=== PATIENT | male | born 1980 | race Caucasian/White ===

== ENCOUNTER 2016-11-01 09:13 | Emergency (ER) | payer MEDICAID, OTHER ==
[~2016-11-01] VITALS: Ht 182.9 cm; Wt 121.9 kg
[2016-11-01] MEDS ORDERED: SODIUM CHLORIDE 0.9% 1,000 ML IV ONE (10:50)
[2016-11-01] MEDS ORDERED: FAMOTIDINE 20 MG/2 ML IVP ONE (11:00)
[2016-11-01] MEDS ORDERED: ONDANSETRON 2MG/ML, 2ML IVPush ONE (11:00)
[2016-11-01] MEDS ORDERED: ONDANSETRON 2MG/ML, 2ML ONE (11:01)
[2016-11-01] MEDS ORDERED: MORPHINE SULFATE 4 MG/ML, 1ML ONE ×2 (11:01→12:46)
[2016-11-01] MEDS ORDERED: FAMOTIDINE 20 MG/2 ML ONE (11:02)
[2016-11-01 11:08] LABS: HEMOGLOBIN 16.1 g/dL (13.7-18.0)
[2016-11-01] MEDS: MORPHINE SULFATE 4 MG/ML, 1ML IVPush PRN ×2 (11:11→12:51)
[2016-11-01 11:19] LABS: BLOOD UREA NITROGEN 9 mg/dL (7-18)
[2016-11-01 11:31] LABS: ASPARTATE AMINO TRANSFERASE 13 U/L (15-37)
[2016-11-01] MEDS ORDERED: OMNIPAQUE 350 MG/ML, 100ML BOTTLE ONE (12:23)
[2016-11-01 12:53] LABS: PATH.CAST-FLAG NOT PRESENT; SPERM-FLAG NOT PRESENT; SRC-FLAG NOT PRESENT; XTAL-FLAG NOT PRESENT; YLC-FLAG NOT PRESENT
[2016-11-01 13:38] VITALS: BP 148/77
== END 2016-11-01 13:40 | disposition home or self-care (01) ==
LOC: ED 10:44
DX: K52.9 Noninfective gastroenteritis and colitis, unspecified (principal); D72.829 Elevated white blood cell count, unspecified; R10.84 Generalized abdominal pain; Z88.0 Allergy status to penicillin
CPT/HCPCS: 36415; 74177; 80053; 81001; 83690; 85025; 85610; 96361; 96374; 96375; 96376; 99285; J2405; J7030; Q9967; S0028

== ENCOUNTER 2017-01-15 18:05 | Emergency (ER) | payer MEDICAID ==
[~2017-01-15] VITALS: Ht 182.9 cm; Wt 111.5 kg
[2017-01-15 18:59] LABS: DAU SCREEN DISCLAIMER
[2017-01-15 19:13] LABS: BLOOD UREA NITROGEN 15 mg/dL (7-18)
[2017-01-15 19:16] LABS: ACETAMINOPHEN < 2 mcg/mL (10-30)
[2017-01-15 21:47] VITALS: BP 137/92
== END 2017-01-15 21:49 | disposition home or self-care (01) ==
LOC: ED 18:37
DX: F32.2 Major depressive disorder, single episode, severe without psychotic features (principal)
CPT/HCPCS: 36415; 80048; 80307; 80329; 82040; 85025; 99284; G0480

== ENCOUNTER 2017-12-29 17:11 | Emergency (ER) | payer BC, MEDICAID ==
[~2017-12-29] VITALS: Ht 182.9 cm; Wt 132.0 kg
[2017-12-29 17:13] VITALS: BP 134/91
[2017-12-29] MEDS ORDERED: HYDROcodone/APAP 5/325 TABLET ONE (17:48)
[2017-12-29] MEDS ORDERED: HYDROcodone/APAP 5/325 TABLET PO ONE (18:00)
== END 2017-12-29 18:30 | disposition home or self-care (01) ==
LOC: ED 18:25
DX: K04.7 Periapical abscess without sinus (principal)
CPT/HCPCS: 41800; 99283

== ENCOUNTER 2018-09-30 09:36 | Emergency (ER) | payer BC ==
[~2018-09-30] VITALS: Ht 182.9 cm; Wt 139.0 kg
--- NOTE | 2018-09-30 10:03 | NUR ---
Pt reports right testicle pain that started yesterday. Pt is alert, oriented, with NAD. Pt is connected to the monitor. Call light within reach.
[2018-09-30 10:40] LABS: BASOPHILS % (AUTO) 1 % (0-1); EOSINOPHILS % (AUTO) 6 % (1-7); LYMPHOCYTES # (AUTO) 2.83 x10^3/uL (1-3.4); LYMPHOCYTES % (AUTO) 27 % (22-44); MD NO; MEAN CORPUSCULAR HEMOGLOBIN 30.7 pg (27.5-34.5); MEAN CORPUSCULAR HGB CONC 34.7 g/dL (33.2-36.2); MEAN CORPUSCULAR VOLUME 88.4 fL (81-97); MEAN PLATELET VOLUME 7.8 fL (7.4-10.4); MONOCYTES # (AUTO) 0.74 x10^3/uL (0.2-0.8); MONOCYTES % (AUTO) 7 % (2-9); NEUTROPHILS # (AUTO) 6.23 x10^3/uL (1.8-6.8); NEUTROPHILS % (AUTO) 59 % (42-75); PLATELET COUNT 262 x10^3/uL (130-400); RED BLOOD COUNT 5.22 x10^6/uL (4.38-5.82); RED CELL DISTRIBUTION WIDTH 13.6 % (9.4-14.8)
[2018-09-30 10:50] LABS: ALBUMIN 3.5 g/dL (3.4-5.0); ANION GAP 6 mmol/L (5-15); CALCIUM 8.5 mg/dL (8.5-10.1); CHLORIDE 107 mmol/L (98-107)
[2018-09-30 10:51] LABS: CREATININE 0.78 mg/dL (0.7-1.3)
--- NOTE | 2018-09-30 10:57 | NUR ---
PT IS OFF THE FLOOR TO US.
--- NOTE | 2018-09-30 11:24 | NUR ---
PT IS BACK FROM US. PT PROVIDED A URINE SAMPLE. SAMPLE SENT TO LAB. PT IS ALERT, ORIENTED, WITH NAD. PT IS CONNECTED TO THE MONITOR. CALL LIGHT WITHIN REACH.
[2018-09-30 11:39] LABS: MICROSCOPIC NOT IND
[2018-09-30 12:16] LABS: CULTURE INDICATED? NO
[2018-09-30 12:31] VITALS: BP 125/81
--- NOTE | 2018-09-30 12:32 | NUR ---
PT IS RESTING IN BED RESPIRATIONS EQUAL AND NON LABORED. NAD. PT IS CONNECTED TO THE MONITOR. CALL LIGHT WITHIN REACH.
[2018-09-30] MEDS ORDERED: HYDROcodone/APAP 5/325 TABLET ONE (12:37)
[2018-09-30] MEDS ORDERED: HYDROcodone/APAP 5/325 TABLET PO ONE (13:00)
--- NOTE | 2018-09-30 13:12 | NUR ---
TASK RN: FIRST CONTACT WITH PT. Patient given discharge instructions and they have confirmed that they understand the instructions. Patient ambulatory with steady gait. Pt left with all personal belongings, discharge paperwork, and perscription.
== END 2018-09-30 13:14 | disposition home or self-care (01) ==
LOC: ED 10:17
DX: N50.812 Left testicular pain (principal); N50.811 Right testicular pain
CPT/HCPCS: 36415; 76870; 80048; 81003; 82040; 85025; 99284

== ENCOUNTER 2018-10-19 16:35 | Inpatient (IN) | payer BC ==
[~2018-10-19] VITALS: Ht 182.9 cm; Wt 136.6 kg
[2018-10-19 17:34] LABS: BASOPHILS # (AUTO) 0.13 x10^3/uL (0-0.1); BASOPHILS % (AUTO) 1 % (0-1); EOSINOPHILS # (AUTO) 0.31 x10^3/uL (0-0.4); EOSINOPHILS % (AUTO) 2 % (1-7); LYMPHOCYTES # (AUTO) 2.29 x10^3/uL (1-3.4); LYMPHOCYTES % (AUTO) 16 % (22-44); MD NO; MEAN CORPUSCULAR HEMOGLOBIN 30.2 pg (27.5-34.5); MEAN CORPUSCULAR HGB CONC 34.1 g/dL (33.2-36.2); MEAN CORPUSCULAR VOLUME 88.5 fL (81-97); MEAN PLATELET VOLUME 7.7 fL (7.4-10.4); MONOCYTES # (AUTO) 0.76 x10^3/uL (0.2-0.8); MONOCYTES % (AUTO) 5 % (2-9); NEUTROPHILS # (AUTO) 10.94 x10^3/uL (1.8-6.8); NEUTROPHILS % (AUTO) 76 % (42-75); PLATELET COUNT 285 x10^3/uL (130-400); RED BLOOD COUNT 5.12 x10^6/uL (4.38-5.82); RED CELL DISTRIBUTION WIDTH 13.4 % (9.4-14.8)
[2018-10-19 17:41] LABS: ALBUMIN 3.7 g/dL (3.4-5.0); ANION GAP 4 mmol/L (5-15); CALCIUM 8.2 mg/dL (8.5-10.1); CHLORIDE 111 mmol/L (98-107)
--- NOTE | 2018-10-19 19:10 | NUR ---
pt called to room from lobby
[2018-10-19] MEDS ORDERED: HYDROmorphone 2 MG/ML, 1ML IVPush PRN (19:30)
[2018-10-19] MEDS ORDERED: CEFTRIAXONE 1,000 MG in SODIUM CHLORIDE 0.9% 50 ML IVPB ONE (19:30)
[2018-10-19] MEDS ORDERED: CEFTRIAXONE PMX 1GM/50ML 50 ML ONE (19:41)
[2018-10-19] MEDS ORDERED: HYDROmorphone 1 MG/ML, 1ML ONE (19:41)
--- NOTE | 2018-10-19 20:26 | NUR ---
REPORT GIVEN TO EREN MARES
[2018-10-19] MEDS ORDERED: PROMETHAZINE 25 MG/ML, 1ML IM PRN (20:30)
[2018-10-19] MEDS ORDERED: ONDANSETRON 2MG/ML, 2ML IVPush PRN (20:30)
[2018-10-19] MEDS ORDERED: ONDANSETRON ODT 4 MG PO PRN (20:30)
[2018-10-19] MEDS ORDERED: OXYcodone IR 5MG TABLET PO PRN (20:30)
[2018-10-19] MEDS ORDERED: LABETALOL 5MG/ML, 20ML IVPush PRN (20:30)
[2018-10-19] MEDS ORDERED: VANCOMYCIN PER PHARMACY MC PRN (20:30)
[2018-10-19] MEDS ORDERED: ACETAMINOPHEN 325 MG TABLET PO PRN (20:30)
[2018-10-19] MEDS ORDERED: CEFTRIAXONE PMX 1GM/50ML 50 ML IV ONE (20:30)
[2018-10-19] MEDS ORDERED: POLYETHYLENE GLYCOL 17 GM PACKET PO PRN (20:30)
[2018-10-19] MEDS ORDERED: hydrALAzine 20 MG/ML, 1ML IVPush PRN (20:30)
[2018-10-19] MEDS ORDERED: VANCOMYCIN PMX 1GM/200ML 200 ML IV ONE (20:30)
[2018-10-19] MEDS ORDERED: BISACODYL 10 MG SUPP PR PRN (20:30)
[2018-10-19 20:53] LABS: FREE T4 (FREE THYROXINE) 1.14 ng/dL (0.76-1.46); THYROID STIMULATING HORMONE 0.474 mIU/L (0.358-3.740)
[2018-10-19 21:00] VITALS: BP 134/81
[2018-10-19] MEDS ORDERED: GABAPENTIN 300 MG CAPSULE PO SCH (21:00)
[2018-10-19 21:05] LABS: HEMOGLOBIN A1C 5.7 % (4.2-6.3)
[2018-10-19] MEDS ORDERED: PHARMACOKINETIC MONITORING MC PRN (21:30)
[2018-10-19] MEDS ORDERED: PHARMACOKINETIC CONSULTATION MC ONE (21:30)
[2018-10-19] MEDS: VANCOMYCIN 2,000 MG in SODIUM CHLORIDE 0.9% 500 ML IV SCH (22:43)
[2018-10-19] MEDS: morphine SULFATE 10 MG/ML, 1ML IVPush PRN (22:43)
[2018-10-19] MEDS: GABAPENTIN 100 MG CAPSULE PO SCH (22:43)
[2018-10-19] MEDS: HEPARIN 5,000 UNITS/ML, 1ML SQ SCH (22:44)
[2018-10-19] MEDS: SODIUM CHLORIDE 0.9% 1,000 ML IV SCH (22:44)
[2018-10-20 02:27] VITALS: BP 143/82
[2018-10-20] MEDS: morphine SULFATE 10 MG/ML, 1ML IVPush PRN (03:25)
[2018-10-20 05:31] LABS: BASOPHILS # (AUTO) 0.12 x10^3/uL (0-0.1); BASOPHILS % (AUTO) 1 % (0-1); EOSINOPHILS % (AUTO) 2 % (1-7); LYMPHOCYTES # (AUTO) 2.61 x10^3/uL (1-3.4); LYMPHOCYTES % (AUTO) 20 % (22-44); MD NO; MEAN CORPUSCULAR HEMOGLOBIN 30.7 pg (27.5-34.5); MEAN CORPUSCULAR HGB CONC 34.6 g/dL (33.2-36.2); MEAN CORPUSCULAR VOLUME 88.8 fL (81-97); MEAN PLATELET VOLUME 7.6 fL (7.4-10.4); MONOCYTES # (AUTO) 0.89 x10^3/uL (0.2-0.8); MONOCYTES % (AUTO) 7 % (2-9); NEUTROPHILS # (AUTO) 9.07 x10^3/uL (1.8-6.8); NEUTROPHILS % (AUTO) 70 % (42-75); PLATELET COUNT 246 x10^3/uL (130-400); RED BLOOD COUNT 4.78 x10^6/uL (4.38-5.82)
[2018-10-20 05:43] LABS: CHLORIDE 109 mmol/L (98-107)
[2018-10-20 05:55] LABS: ALANINE AMINOTRANSFERASE 38 U/L (12-78); ALBUMIN 3.4 g/dL (3.4-5.0); ALKALINE PHOSPHATASE 82 U/L (45-117); ANION GAP 5 mmol/L (5-15); BILIRUBIN,TOTAL 0.8 mg/dL (0.2-1.0); CALCIUM 8.1 mg/dL (8.5-10.1); CHOL/HDL RATIO 5.8; CHOLESTEROL, TOTAL 163 mg/dL (140-239); CREATININE 0.86 mg/dL (0.7-1.3); HDL CHOL % 17 % (26-37); HDL CHOLESTEROL (DIRECT) 28 mg/dL (40-60); LDL CHOLESTEROL,CALCULATED 110 mg/dL (54-169); LDL/HDL RATIO 3.9 (0.5-3.0); TOTAL PROTEIN 7.2 g/dL (6.4-8.2); TRIGLYCERIDES 126 mg/dL (50-200); VLDL CHOLESTEROL 25 mg/dL (0-25)
[2018-10-20 06:41] VITALS: BP 132/84
[2018-10-20] MEDS: HEPARIN 5,000 UNITS/ML, 1ML SQ SCH ×2 (08:45→17:20)
[2018-10-20] MEDS: DOCUSATE 100 MG CAPSULE PO PRN ×2 (08:45→21:59)
[2018-10-20] MEDS: SODIUM CHLORIDE 0.9% 1,000 ML IV SCH (08:45)
[2018-10-20] MEDS: GABAPENTIN 100 MG CAPSULE PO SCH ×3 (08:45→20:25)
[2018-10-20] MEDS: VANCOMYCIN 2,000 MG in SODIUM CHLORIDE 0.9% 500 ML IV SCH ×2 (10:20→21:59)
[2018-10-20 12:52] VITALS: BP 156/93
[2018-10-20] MEDS ORDERED: CEFTRIAXONE PMX 2GM/50ML 50 ML IV SCH (17:00)
[2018-10-20 18:51] VITALS: BP 124/20
[2018-10-21] MEDS: HEPARIN 5,000 UNITS/ML, 1ML SQ SCH ×2 (01:12→08:43)
[2018-10-21 01:40] VITALS: BP 125/74
[2018-10-21 06:03] LABS: ALBUMIN 3.4 g/dL (3.4-5.0); ANION GAP 6 mmol/L (5-15); BASOPHILS # (AUTO) 0.08 x10^3/uL (0-0.1); BASOPHILS % (AUTO) 1 % (0-1); CALCIUM 8.3 mg/dL (8.5-10.1); CHLORIDE 110 mmol/L (98-107); CREATININE 0.68 mg/dL (0.7-1.3); EOSINOPHILS # (AUTO) 0.34 x10^3/uL (0-0.4); EOSINOPHILS % (AUTO) 4 % (1-7); LYMPHOCYTES # (AUTO) 2.32 x10^3/uL (1-3.4); LYMPHOCYTES % (AUTO) 24 % (22-44); MD NO; MEAN CORPUSCULAR HEMOGLOBIN 30.5 pg (27.5-34.5); MEAN CORPUSCULAR HGB CONC 34.5 g/dL (33.2-36.2); MEAN CORPUSCULAR VOLUME 88.5 fL (81-97); MEAN PLATELET VOLUME 7.8 fL (7.4-10.4); MONOCYTES # (AUTO) 0.68 x10^3/uL (0.2-0.8); MONOCYTES % (AUTO) 7 % (2-9); NEUTROPHILS # (AUTO) 6.19 x10^3/uL (1.8-6.8); NEUTROPHILS % (AUTO) 64 % (42-75); PLATELET COUNT 255 x10^3/uL (130-400); RED BLOOD COUNT 4.96 x10^6/uL (4.38-5.82); RED CELL DISTRIBUTION WIDTH 13.7 % (9.4-14.8)
[2018-10-21 07:12] VITALS: BP 123/85
[2018-10-21] MEDS: GABAPENTIN 100 MG CAPSULE PO SCH (08:42)
[2018-10-21] MEDS: VANCOMYCIN 2,000 MG in SODIUM CHLORIDE 0.9% 500 ML IV SCH (10:47)
[2018-10-21] MEDS ORDERED: DOXY100T PO (12:06)
[2018-10-21] MEDS ORDERED: CEFD300C37 PO (12:06)
[2018-10-21 12:34] VITALS: BP 128/76
[2018-10-21 12:55] VITALS: BP 114/78
[2018-10-21] MEDS ORDERED: VANCOMYCIN 2,000 MG in SODIUM CHLORIDE 0.9% 500 ML IV SCH (18:00)
== END 2018-10-21 14:55 | disposition home or self-care (01) | DRG 603 ==
LOC: ED 20:00 → EDIP 20:10 → 3NE 21:06 → DCLOUNGE 10-21 14:38
PROVIDERS: ADMIT Internal Medicine; ATTEND Internal Medicine
DX: L03.116 Cellulitis of left lower limb (principal); N50.89 Other specified disorders of the male genital organs; Z83.3 Family history of diabetes mellitus; I10 Essential (primary) hypertension; Z80.8 Family history of malignant neoplasm of other organs or systems; Z88.0 Allergy status to penicillin
CPT/HCPCS: 36415; 80048; 80053; 80061; 80202; 82040; 83036; 83735; 84439; 84443; 85025; 87040; 93005; 96374; 96375; 99285; G0378; J0696; J1170; J1644; J2405; J3370; J2270; J7030; J7040

== ENCOUNTER 2020-08-19 12:10 | Emergency (ER) | payer BC ==
[~2020-08-19] VITALS: Ht 182.9 cm; Wt 140.7 kg
[~2020-08-19 12:10] MED LIST: CEFD300C37 PO; DOXY100T PO
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
[2020-08-19 12:15] VITALS: BP 135/108
--- NOTE | 2020-08-19 12:18 | NUR ---
PROVIDER AT BEDSIDE FOR EVALUATION. 20G R HAND PLACED BY ARVIN DEUTSCH AT BEDSIDE Addendum: 08/19/20 at 1236 by [email or web address] Patient repositioned, no other wounds noted.
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
[2020-08-19] MEDS ORDERED: SODIUM CHLORIDE 0.9% 1,000ML IVBOLUS ONE (12:30)
[2020-08-19] MEDS ORDERED: HYDROmorphone 1 MG/ML, 1ML INJ IVPush PRN (12:30)
[2020-08-19] MEDS ORDERED: SODIUM CHLORIDE FLUSH 10ML SYR IVF ONE (12:30)
== END 2020-08-19 12:49 | disposition short-term general hospital (02) ==
LOC: ED 12:39
DX: S21.112A Laceration without foreign body of left front wall of thorax without penetration into thoracic cavity, initial encounter (principal); X99.8XXA Assault by other sharp object, initial encounter; Y93.89 Activity, other specified; Y92.488 Other paved roadways as the place of occurrence of the external cause; Y99.8 Other external cause status
CPT/HCPCS: 71045; 99283; J7030